=== PATIENT | male | born 1990 | race Two or more races ===

== ENCOUNTER → 2023-03-24 | Emergency (ER) | payer OTHER ==
[~2023-03-24] VITALS: Ht 170.2 cm; Wt 65.8 kg
[2023-03-24 09:53] LABS: HEMATOCRIT 48.8 % (39.0-48.0); MEAN CELL VOLUME 89.2 fL (80.0-100.00); MEAN CORPUSCULAR HEMOGLOBIN 31.1 pg (27.00-32.0); MEAN CORPUSCULAR HGB CONC 34.9 g/dl (32.0-36.0); PLATELET COUNT 389 K/uL (150-450); RED BLOOD COUNT 5.47 M/uL (4.00-6.00); RED CELL DISTRIBUTION WIDTH 14.3 % (11.5-14.5)
[2023-03-24 11:18] LABS: ALBUMIN 3.9 gm/dL (3.4-5.0); BILIRUBIN TOTAL 1.11 mg/dL (0.3-1.2); CALCIUM 9.8 mg/dL (8.5-10.1); CREATININE SERUM 0.85 mg/dL (0.70-1.30); GFR 103.18; GLOBULINA 4.1 G/DL (2.4-3.5)
[2023-03-24 11:35] LABS: POTASSIUM 4.71 mEq/L (3.5-5.1)
[2023-03-24 14:57] LABS: HEMATOCRIT 46.3 % (39.0-48.0); MEAN CELL VOLUME 89.2 fL (80.0-100.00); MEAN CORPUSCULAR HEMOGLOBIN 30.8 pg (27.00-32.0); MEAN CORPUSCULAR HGB CONC 34.5 g/dl (32.0-36.0); PLATELET COUNT 314 K/uL (150-450); RED BLOOD COUNT 5.19 M/uL (4.00-6.00); RED CELL DISTRIBUTION WIDTH 13.8 % (11.5-14.5)
[2023-03-24 15:59] LABS: AMYLASE 2100 U/L (25-115); LIPASE 2572 U/L (13-75)
== END | disposition left against medical advice (07) ==
LOC: ER 07:54
PROVIDERS: Emergency Medicine
DX: K52.89 Other specified noninfective gastroenteritis and colitis (principal)